=== PATIENT | female | born 1985 | race Caucasian/White ===

== ENCOUNTER → 2021-02-18 | Outpatient (CLI) | payer BC ==
[~2021-02-18] MED LIST: DELSYM30 MG/5 ML PO; DOXYCYCLINE HY100 M2 PO; IBUPROFEN600 MG PO; MEDROL DOSEPAK 24 MG PO; VENTOLIN HFA 66.7 GM INH
== END ==
LOC: RAD 09:22
DX: Z03.818 Encounter for observation for suspected exposure to other biological agents ruled out (principal); U07.1 COVID-19; R91.8 Other nonspecific abnormal finding of lung field
CPT/HCPCS: 71046

== ENCOUNTER 2021-02-24 00:56 | Emergency (ER) | payer BC ==
[2021-02-24 02:38] LABS: HEMOGLOBIN 13.7 gm/dl (12.3-15.3); RED BLOOD COUNT 4.9 M/UL (4.00-5.10); WHITE BLOOD COUNT 9.5 K/UL (4.5-11.0)
[2021-02-24 02:56] LABS: BUN/CREATININE RATIO 17 (0-10)
[2021-02-24] MEDS ORDERED: DOXYCYCLINE HY100 M2 PO (05:52)
[2021-02-24] MEDS ORDERED: VENTOLIN HFA 66.7 GM INH (05:52)
[2021-02-24] MEDS ORDERED: DELSYM30 MG/5 ML PO (05:52)
[2021-02-24] MEDS ORDERED: MEDROL DOSEPAK 24 MG PO (05:52)
== END 2021-02-24 06:00 | disposition home or self-care (01) ==
LOC: ER1 00:56
PROVIDERS: Physician Assistant Medical
DX: U07.1 COVID-19 (principal); Z90.49 Acquired absence of other specified parts of digestive tract; Z90.710 Acquired absence of both cervix and uterus
CPT/HCPCS: 71045; 80053; 83605; 85025; 87040; 93005; 99285

== ENCOUNTER 2021-03-30 18:09 | Emergency (ER) | payer BC ==
[~2021-03-30 18:09] MED LIST changes: -IBUPROFEN600 MG PO
[2021-03-30 19:05] LABS: RED BLOOD COUNT 4.66 M/UL (4.00-5.10); WHITE BLOOD COUNT 10.4 K/UL (4.5-11.0)
[2021-03-30 19:49] LABS: BUN/CREATININE RATIO 19 (0-10)
[2021-03-30] MEDS ORDERED: IBUPROFEN600 MG PO (20:45)
[2021-03-30] MEDS ORDERED: MEDROL DOSEPAK 24 MG PO (20:59)
== END 2021-03-30 20:56 | disposition home or self-care (01) ==
LOC: ER1 18:09
PROVIDERS: Physician Assistant Medical
DX: R07.89 Other chest pain (principal); Z90.49 Acquired absence of other specified parts of digestive tract; Z90.710 Acquired absence of both cervix and uterus; Z88.5 Allergy status to narcotic agent; Z91.040 Latex allergy status
CPT/HCPCS: 71045; 80053; 82550; 82553; 83874; 84484; 85025; 85379; 93005; 99285; Q9967

== ENCOUNTER → 2021-05-05 | Outpatient (CLI) | payer BC ==
[~2021-05-05] MED LIST changes: +IBUPROFEN600 MG PO
== END ==
LOC: US 10:00
DX: E04.9 Nontoxic goiter, unspecified (principal)
CPT/HCPCS: 76536

== ENCOUNTER → 2021-05-25 | Outpatient (CLI) | payer BC | LOC: RAD 17:41 | DX: R07.81 Pleurodynia (principal) | CPT/HCPCS: 71046 ==